=== PATIENT | female | born 1970 | race Caucasian/White ===

== ENCOUNTER 2017-02-25 01:29 | Emergency (ER) | payer MEDICARE, MEDICAID ==
[~2017-02-25] VITALS: Ht 152.4 cm; Wt 68.4 kg
[~2017-02-25 01:29] MED LIST: CITA40TA12 PO; FURO-93 PO; GLIP2.5T3 PO; METF10002 PO; OXYC-307 PO; TIOT18CA INH; potassium
== END 2017-02-25 01:54 | disposition left against medical advice (07) ==
LOC: ED 01:48
DX: Z53.21 Procedure and treatment not carried out due to patient leaving prior to being seen by health care provider (principal)

== ENCOUNTER 2017-03-01 02:10 | Emergency (ER) | payer MEDICARE, MEDICAID ==
[~2017-03-01] VITALS: Ht 152.4 cm; Wt 96.2 kg
[2017-03-01 02:13] VITALS: BP 132/85
== END 2017-03-01 03:39 | disposition home or self-care (01) ==
LOC: ED 02:33
DX: R05 Cough (principal); E66.01 Morbid (severe) obesity due to excess calories; Z68.41 Body mass index [BMI] 40.0-44.9, adult; Z72.9 Problem related to lifestyle, unspecified
CPT/HCPCS: 99281

== ENCOUNTER 2017-04-07 10:12 | Emergency (ER) | payer MEDICARE, MEDICAID ==
[~2017-04-07] VITALS: Ht 157.5 cm; Wt 94.0 kg
[2017-04-07 10:20] VITALS: BP 124/84
[2017-04-07] MEDS ORDERED: ALBUTEROL/IPRATROPIUM 2.5MG/0.5MG, 3 ML NPPB ONE (11:00)
[2017-04-07] MEDS ORDERED: ALBUTEROL/IPRATROPIUM 2.5MG/0.5MG, 3 ML ONE (11:12)
== END 2017-04-07 11:27 | disposition home or self-care (01) ==
LOC: ED 10:37
DX: J00 Acute nasopharyngitis [common cold] (principal); E11.9 Type 2 diabetes mellitus without complications; F17.210 Nicotine dependence, cigarettes, uncomplicated; R05 Cough; Z59.0 Homelessness; Z72.9 Problem related to lifestyle, unspecified; Z75.9 Unspecified problem related to medical facilities and other health care; Z63.8 Other specified problems related to primary support group
CPT/HCPCS: 71046; 94640; 99284; J7620

== ENCOUNTER 2018-08-13 13:23 | Emergency (ER) | payer MEDICARE, MEDICAID ==
[~2018-08-13] VITALS: Ht 157.5 cm; Wt 105.0 kg
[2018-08-13] MEDS ORDERED: SODIUM CHLORIDE FLUSH 10ML SYR IVF ONE (13:30)
[2018-08-13] MEDS ORDERED: NALOXONE 0.4 MG/ML, 1ML IVPush PRN (13:30)
[2018-08-13] MEDS ORDERED: SODIUM CHLORIDE 0.9% 1,000ML IVBOLUS ONE (13:30)
--- NOTE | 2018-08-13 13:49 | NUR ---
PT PLACED ON BP CUFF, PULSE OX ON ARRIVAL. PT SWATTING AT THIS RN WITH BOTH ARMS, USING PROFANITY AND STATING "LEAVE ME ALONE". PT WITH INTERMITTENT SNORING RESPIRATIONS AND PULSE OX DROPPING TO 85%. OXYGEN PLACED IN MOUTH VIA CANNULA AT 6LITERS FOR WHILE PT IS ASLEEP AND HYPOXIC. FS GLUCOSE PERFORMED/RECORDED. PT AWAKES TO VERBAL STIMULI BUT CONTINUES TO BE COMBATIVE AND UNCOOPERATIVE. PUPILS PINPOINT, SPEECH SLURRED. PT MOVED FROM ROOM 4 TO ROOM 3 FOR CLOSER MONITORING AND ABILITY TO VISUALIZE WITH CAMERA. PT TO CT.
--- NOTE | 2018-08-13 14:27 | NUR ---
LABS DRAWN WITH ASSISTANCE HOLDING BY EMT. PT CONTINUES TO BE UNCOOPERATIVE AND COMBATIVE WHEN AWAKENED BUT QUICKLY FALLS BACK TO SLEEP. O2 SAT MAINTAINED WITH BLOW BY OXYGEN VIA NC.
[2018-08-13 14:36] LABS: BASOPHILS # (AUTO) 0.03 x10^3/uL (0-0.1); BASOPHILS % (AUTO) 0 % (0-1); EOSINOPHILS # (AUTO) 0.24 x10^3/uL (0-0.4); EOSINOPHILS % (AUTO) 2 % (1-7); LYMPHOCYTES # (AUTO) 2.92 x10^3/uL (1-3.4); LYMPHOCYTES % (AUTO) 29 % (22-44); MD NO; MEAN CORPUSCULAR HEMOGLOBIN 29.8 pg (27.0-34.8); MEAN CORPUSCULAR HGB CONC 32.5 g/dL (32.4-35.8); MEAN CORPUSCULAR VOLUME 91.9 fL (80-100); MEAN PLATELET VOLUME 7.2 fL (7.4-10.4); MONOCYTES # (AUTO) 0.57 x10^3/uL (0.2-0.8); MONOCYTES % (AUTO) 6 % (2-9); NEUTROPHILS # (AUTO) 6.35 x10^3/uL (1.8-6.8); NEUTROPHILS % (AUTO) 63 % (42-75); PLATELET COUNT 367 x10^3/uL (130-400); RED BLOOD COUNT 4.83 x10^6/uL (3.82-5.3); RED CELL DISTRIBUTION WIDTH 14.7 % (9.6-15.2)
[2018-08-13 14:47] LABS: ALBUMIN 3.5 g/dL (3.4-5.0); ANION GAP 8 mmol/L (5-15); CALCIUM 8.5 mg/dL (8.5-10.1); CHLORIDE 104 mmol/L (98-107); SALICYLATE LEVEL 2.6 mg/dL (2.8-20.0)
[2018-08-13 14:50] LABS: ALANINE AMINOTRANSFERASE 90 U/L (12-78); ALKALINE PHOSPHATASE 74 U/L (45-117); BILIRUBIN,TOTAL 0.5 mg/dL (0.2-1.0); CREATININE 0.64 mg/dL (0.55-1.02)
--- NOTE | 2018-08-13 15:48 | NUR ---
PT SLEEPING, NAD, VSS.
--- NOTE | 2018-08-13 16:49 | NUR ---
PT AROUSABLE TO VOICE, LESS CONFUSED AT THIS TIME. PUPILS 3, REACTIVE TO LIGHT. VSS. PT FOR RECHECK.
[2018-08-13 16:50] VITALS: BP 121/76
--- NOTE | 2018-08-13 18:50 | NUR ---
PT ABLE TO AMBULATE TO DISCHARGE DESK WITH STEADY GAIT. PT STATES SHE WILL CALL [facility] FOR TAXI RIDE TO NURSING HOME.
--- NOTE | 2018-08-13 18:58 | NUR ---
PT BECAME VERBALLY ABUSIVE TO STAFF AT DISCHARGE DESK. PT ESCORTED OUT OF ER BY SECURITY.
== END 2018-08-13 18:57 | disposition home or self-care (01) ==
LOC: ED 14:35
DX: F10.120 Alcohol abuse with intoxication, uncomplicated (principal); E11.9 Type 2 diabetes mellitus without complications; J45.909 Unspecified asthma, uncomplicated; Z72.9 Problem related to lifestyle, unspecified; Z79.84 Long term (current) use of oral hypoglycemic drugs; Y90.9 Presence of alcohol in blood, level not specified
CPT/HCPCS: 36415; 70450; 80053; 80307; 82962; 85025; 99284

== ENCOUNTER 2019-04-03 17:24 | Emergency (ER) | payer MEDICARE, MEDICAID ==
--- NOTE | 2019-04-03 18:43 | NUR ---
CALLED PT MULTI TIMES WO ANY RESPONSE AT APPROX 1 HOUR PT IDENTIFIED HER SELF BUT STATED SHE WAS NOT READY TO COME BACK THAT SHE NEEDED TO ORGANIZE HER PURSE
--- NOTE | 2019-04-03 18:50 | NUR ---
PT NOW STS SHE IS LEAVING WO TX
== END 2019-04-03 18:52 | disposition left against medical advice (07) ==
LOC: ED 18:46
DX: R06.02 Shortness of breath (principal); Z53.21 Procedure and treatment not carried out due to patient leaving prior to being seen by health care provider

== ENCOUNTER 2019-04-06 17:55 | Emergency (ER) | payer MEDICARE, MEDICAID ==
[~2019-04-06] VITALS: Ht 157.5 cm; Wt 100.0 kg
[2019-04-06 18:19] VITALS: BP 124/64
== END 2019-04-06 22:08 | disposition home or self-care (01) ==
LOC: ED 21:45
DX: J06.9 Acute upper respiratory infection, unspecified (principal); E11.9 Type 2 diabetes mellitus without complications; J45.909 Unspecified asthma, uncomplicated
CPT/HCPCS: 71046; 82962; 99283